=== PATIENT | male | born 1995 | race Hispanic/Latino ===

== ENCOUNTER 2022-10-25 10:10 | Emergency (ER) | payer OTHER ==
[~2022-10-25] VITALS: Ht 165.1 cm; Wt 78.0 kg
[2022-10-25] VITALS (10 sets, daily range): BP systolic 70–119; BP diastolic 43–77
[2022-10-25] MEDS ORDERED: MOTRIN400 MG/TAB PO (12:10)
== END 2022-10-25 12:41 | disposition home or self-care (01) | DRG 563 ==
LOC: ED 10:10
DX: S62.633A Displaced fracture of distal phalanx of left middle finger, initial encounter for closed fracture (principal); W22.8XXA Striking against or struck by other objects, initial encounter